=== PATIENT | female | born 1995 ===

== ENCOUNTER → 2022-11-12 | Outpatient (CLI) | payer OTHER ==
[~2022-11-12] VITALS: Ht 170.2 cm; Wt 62.9 kg
[~2022-11-12] MED LIST: BICITRA 30ML SOLN UDC PO ONE; HOME MED LIST COMPLETE! XX SCH; IRON65TA2 PO; PRENTAB9 PO; VITA100T59 PO
[2022-11-12 09:59] VITALS: BP 127/76; O2SAT 99
== END ==
LOC: M LDO 09:33
PROVIDERS: ATTEND Registered Nurse
DX: O99.613 Diseases of the digestive system complicating pregnancy, third trimester (principal); K21.9 Gastro-esophageal reflux disease without esophagitis; O26.893 Other specified pregnancy related conditions, third trimester; R07.89 Other chest pain; Z3A.31 31 weeks gestation of pregnancy
CPT/HCPCS: 59025; 93005; G0463

== ENCOUNTER 2023-01-06 18:57 | Inpatient (IN) | payer OTHER ==
[~2023-01-06] VITALS: Ht 170.2 cm; Wt 69.4 kg
[~2023-01-06 18:57] MED LIST changes: -BICITRA 30ML SOLN UDC PO ONE; -HOME MED LIST COMPLETE! XX SCH
[2023-01-06 19:13] VITALS: BP 132/85
[2023-01-07] VITALS (42 sets, daily range): BP systolic 106–132; BP diastolic 61–85; O2SAT 97
[2023-01-07] MEDS ORDERED: TRANEXAMIC ACID INJection 1,000 MG in NS 100 ML IV PRN (09:00)
[2023-01-07] MEDS ORDERED: METHYLERGONOVINE MALEATE 0.2MG/ML 1ML VIAL IM PRN ×2 (09:00→19:10)
[2023-01-07] MEDS ORDERED: LR 1,000 ML IV SCH (09:00)
[2023-01-07] MEDS ORDERED: OXYTOCIN DRIP 30 UNITS in IV 1 EA IV PRN ×4 (09:00)
[2023-01-07] MEDS ORDERED: LIDOCAINE 1% MDV 20ML VIAL INFIL PRN (09:00)
[2023-01-07] MEDS ORDERED: OXYTOCIN 30UNITS IN 0.9% NaCl 500ML IV BAG As Ordered ONE (12:27)
[2023-01-07] MEDS ORDERED: HOME MED LIST COMPLETE! XX SCH (16:00)
[2023-01-07 18:27] LABS: CORD GAS ABE V -7.7; CORD GAS HCO3 V 18.9 MMOL/L; CORD GAS O2 SAT V 89.7 %; CORD GAS PCO2 V 42.2 mmHg; CORD GAS PH V 7.268 UNITS; CORD GAS PO2 V 52.6 mmHg; CORD GAS SBC V 18.1 MMOL/L; CORD GAS TCO2 V 20.2 MMOL/L
[2023-01-07 18:28] LABS: CORD GAS ABE A -5.5; CORD GAS HCO3 A 23.3 MMOL/L; CORD GAS O2 SAT A 30.9 %; CORD GAS PCO2 A 59.3 mmHg; CORD GAS PH A 7.213 UNITS; CORD GAS PO2 A 18.8 mmHg; CORD GAS SBC A 18.4 MMOL/L; CORD GAS TCO2 A 25.2 MMOL/L
[2023-01-07] MEDS ORDERED: ONDANSETRON 4MG 2ML VIAL IV PRN (19:10)
[2023-01-07] MEDS ORDERED: DIBUCAINE 1% OINTMENT 30GM TOP PRN (19:10)
[2023-01-07] MEDS ORDERED: METOCLOPRAMIDE INJ 10MG/2ML VIAL IV PRN (19:10)
[2023-01-07] MEDS: LR 1,000 ML IV SCH (19:10)
[2023-01-07] MEDS ORDERED: OXYTOCIN DRIP 30 UNITS in IV 1 EA IV SCH (19:10)
[2023-01-07] MEDS ORDERED: RHOGAM 300MCG (1500IU) INJ IM SCH (19:10)
[2023-01-07] MEDS ORDERED: DOCUSATE SODIUM 100MG CAPSULE PO PRN (19:10)
[2023-01-07] MEDS: PRENATAL VITAMINS CHEWABLE TABLET PO SCH (19:21)
[2023-01-07] MEDS: ACETAMINOPHEN 500 MG TAB PO SCH (19:27)
[2023-01-07] MEDS: IBUPROFEN 800 MG TAB PO SCH (22:38)
[2023-01-08] MEDS: LR 1,000 ML IV SCH (02:48)
[2023-01-08] MEDS: ACETAMINOPHEN 500 MG TAB PO SCH ×4 (05:55→18:17)
[2023-01-08] MEDS: IBUPROFEN 800 MG TAB PO SCH ×3 (05:56→21:18)
[2023-01-08 06:00] VITALS: BP 111/61; O2SAT 99
[2023-01-08 07:03] LABS: HEMATOCRIT 29.4 % (36.0-47.0); MEAN CORPUSCULAR HEMOGLOBIN 32.2 pg (27.0-33.0); MEAN CORPUSCULAR VOLUME 100.7 fl (80.0-96.0); PLATELET COUNT, AUTOMATED 140 10^3/uL (150-450); RED BLOOD COUNT 2.92 10^6/uL (4.00-5.40); WHITE BLOOD COUNT 17.3 10^3/uL (4.0-10.0)
[2023-01-08 07:24] LABS: HEMOGLOBIN 9.4 g/dl (12.0-15.5)
[2023-01-08 08:30] VITALS: BP 111/61; TEMP 97.6; O2SAT 99
[2023-01-08] MEDS ORDERED: PRENATAL VITAMINS CHEWABLE TABLET PO SCH (09:00)
[2023-01-08] MEDS: PRENATAL VITAMINS CHEWABLE TABLET PO SCH (09:06)
[2023-01-08 18:00] VITALS: BP 118/66; O2SAT 97
[2023-01-09] MEDS: ACETAMINOPHEN 500 MG TAB PO SCH ×2 (00:21→05:45)
[2023-01-09] MEDS: IBUPROFEN 800 MG TAB PO SCH (05:46)
[2023-01-09 06:00] VITALS: BP 120/75; O2SAT 98
[2023-01-09] MEDS ORDERED: MEASLES,MUMPS,RUBELLA VACCINE INJ (MMR-II) SC.IMMUN ONE (09:00)
[2023-01-09] MEDS: PRENATAL VITAMINS CHEWABLE TABLET PO SCH (09:59)
== END 2023-01-09 15:10 | disposition home or self-care (01) | DRG 807 ==
LOC: M LDO 18:57 → M LDI 01-07 03:41 → M OBS 01-07 20:43
PROVIDERS: ADMIT Obstetrics & Gynecology; ATTEND Obstetrics & Gynecology
PROC: 10E0XZZ Delivery of Products of Conception, External Approach (ICD-10-PCS; principal; 2023-01-07)
PROC: 0KQM0ZZ Repair Perineum Muscle, Open Approach (ICD-10-PCS; 2023-01-07)
DX: O70.1 Second degree perineal laceration during delivery (principal); Z37.0 Single live birth; Z3A.39 39 weeks gestation of pregnancy; D64.9 Anemia, unspecified; O99.02 Anemia complicating childbirth

== ENCOUNTER 2023-01-06 18:58 | Outpatient (CLI) | payer OTHER ==
[~2023-01-06] VITALS: Ht 170.2 cm; Wt 69.4 kg
[2023-01-07 02:34] VITALS: BP 120/73
[2023-01-07] MEDS ORDERED: MORPHINE 10 MG/ML 1ML VIAL IM ONE (02:50)
[2023-01-07] MEDS ORDERED: LACTATED RINGER'S 1000 ML IV STA (03:54)
[2023-01-07] MEDS ORDERED: LR 1,000 ML IV SCH (03:55)
[2023-01-07] MEDS ORDERED: METHYLERGONOVINE MALEATE 0.2MG/ML 1ML VIAL IM PRN (03:55)
[2023-01-07] MEDS ORDERED: OXYTOCIN INJ 10UNITS/ML 1ML VIAL IM PRN (03:55)
[2023-01-07] MEDS ORDERED: OXYTOCIN DRIP 30 UNITS in IV 1 EA IV PRN ×6 (03:55)
[2023-01-07] MEDS ORDERED: OXYTOCIN INJ 10UNITS/ML 1ML VIAL IV PRN (03:55)
[2023-01-07] MEDS ORDERED: LIDOCAINE 1% MDV 20ML VIAL INFIL PRN (03:55)
[2023-01-07] MEDS ORDERED: TRANEXAMIC ACID INJection 1,000 MG in NS 100 ML IV PRN (03:55)
[2023-01-07] MEDS ORDERED: CARBOPROST TROMETHAMINE 250 MCG/ML AMP IM PRN (03:55)
[2023-01-07 04:26] LABS: HEMOGLOBIN 11.6 g/dl (12.0-15.5); MEAN CORPUSCULAR HEMOGLOBIN 32.4 pg (27.0-33.0); MEAN CORPUSCULAR HGB CONC 33.1 g/dl (32.0-36.5); MEAN CORPUSCULAR VOLUME 97.8 fl (80.0-96.0); PLATELET COUNT, AUTOMATED 148 10^3/uL (150-450); RED BLOOD COUNT 3.58 10^6/uL (4.00-5.40); WHITE BLOOD COUNT 15.7 10^3/uL (4.0-10.0)
[2023-01-07] MEDS ORDERED: diphenhydrAMINE 50MG/ML VIAL IV PRN (04:40)
[2023-01-07] MEDS ORDERED: EPIDURAL/PCA KEYS XX PRN (04:40)
[2023-01-07] MEDS ORDERED: ePHEDrine SULFATE 25 MG/5 ML(5MG/ML) SYRINGE IVP PRN (04:40)
[2023-01-07] MEDS ORDERED: ONDANSETRON 4MG 2ML VIAL IV PRN (04:40)
[2023-01-07] MEDS ORDERED: LR 500 ML IV PRN (04:40)
[2023-01-07] MEDS ORDERED: NALOXONE INJ 0.4MG/1ML VIAL IV PRN (04:40)
[2023-01-07] MEDS: FENTANYL/ROPIVACAINE/NACL BAG 100 ML EPIDURAL SCH ×2 (05:20→13:36)
[2023-01-07 07:16] LABS: HEPATITIS B SURFACE ANTIGEN NEGATIVE (NEGATIVE)
[2023-01-07] MEDS ORDERED: OXYTOCIN DRIP 30 UNITS in IV 1 EA IV SCH (14:20)
== END 2023-01-07 14:30 | disposition home or self-care (01) ==
LOC: M LDO 18:58
PROVIDERS: ATTEND Obstetrics & Gynecology
DX: O47.1 False labor at or after 37 completed weeks of gestation (principal); Z3A.39 39 weeks gestation of pregnancy; O99.013 Anemia complicating pregnancy, third trimester; D64.9 Anemia, unspecified